=== PATIENT | male | born 1975 | race Two or more races ===

== ENCOUNTER 2025-02-13 11:50 | Day surgery (SDC) | payer MEDICARE, MEDICAID, SELFPAY ==
[2025-02-12 11:00] VITALS: BMI 63.6
[2025-02-13] VITALS (8 sets, daily range): BP systolic 102–127; BP diastolic 58–83; PULSE 64–81; RESP 9–22; TEMP 36.7–36.9; O2SAT 95–99; BMI 32.1
[2025-02-13] MEDS: fentaNYL CIT INJ 50 mCg/ML AMP 2ML (ASD USE ONLY) IVP (13:51)
[2025-02-13] MEDS: MIDAZOLAM INJ 1 MG/ML VIAL 2 ML (ASD USE ONLY) 2 MG IVP (13:51)
[2025-02-13] MEDS: RINGERS LACTATED 1000 ML 1,000 ML 100 ML IV (13:51)
--- NOTE | 2025-02-13 14:44 | SUR.PHASEII ---
Patient arrived A/O x3. VSS. Last sedation medication 1351. Tolerating PO fluids. Ready to go home.
== END 2025-02-13 14:50 | disposition home or self-care (01) ==
PROVIDERS: PCP Family Medicine; Referring Provider Surgery; Visit Provider Surgery
PROC: 0DBE8ZX Excision of Large Intestine, Via Natural or Artificial Opening Endoscopic, Diagnostic (ICD-10-PCS; CPT 45380; principal; 2025-02-13 13:00)
DX: Z12.11 Encounter for screening for malignant neoplasm of colon (principal); Z80.0 Family history of malignant neoplasm of digestive organs; G82.20 Paraplegia, unspecified; E66.01 Morbid (severe) obesity due to excess calories; Z68.32 Body mass index [BMI] 32.0-32.9, adult
CPT/HCPCS: G0105; J2250; J3010; J7120